=== PATIENT | male | born 1980 | race Caucasian/White ===

== ENCOUNTER 2021-11-22 23:43 | Emergency (ER) | payer SELFPAY | END 2021-11-23 00:30 | disposition home or self-care (01) | LOC: BURERS 23:43 | DX: S16.1XXA Strain of muscle, fascia and tendon at neck level, initial encounter (principal); S29.011A Strain of muscle and tendon of front wall of thorax, initial encounter; S29.012A Strain of muscle and tendon of back wall of thorax, initial encounter; S83.92XA Sprain of unspecified site of left knee, initial encounter; G40.909 Epilepsy, unspecified, not intractable, without status epilepticus; F17.210 Nicotine dependence, cigarettes, uncomplicated; V50.5XXA Driver of pick-up truck or van injured in collision with pedestrian or animal in traffic accident, initial encounter | CPT/HCPCS: 99283 ==